=== PATIENT | female | born 1995 | race Caucasian/White ===

== ENCOUNTER 2018-02-27 17:35 | Inpatient (IN) | payer OTHER ==
[~2018-02-27] VITALS: Ht 172.7 cm; Wt 72.6 kg
[2018-02-27] MEDS ORDERED: LACTATED RINGERS 1,000 ML IV SCH (17:56)
[2018-02-27] MEDS ORDERED: LIDOCAINE HCL 1% 20ML VIAL (Pyxis) INJ INFIL PRN (18:00)
[2018-02-27] MEDS ORDERED: MISOPROSTOL 100MCG TABLET VG PRN (18:00)
[2018-02-27] MEDS ORDERED: METHYLERGONOVINE MALEATE 0.2 MG/ML IM PRN ×2 (18:00→19:45)
[2018-02-27] MEDS ORDERED: BUTORPHANOL TARTRATE 2 MG/ML VIAL IV PRN (18:30)
[2018-02-27 18:33] LABS: HEMATOCRIT. 32.7 % (36.0-48.0); HEMOGLOBIN. 10.3 g/dL (12.0-16.0); MEAN CORPUSCULAR HEMOGLOBIN 24.2 pg (28.0-32.0); MEAN CORPUSCULAR VOLUME 77.1 fL (81.0-99.0); MEAN PLATELET VOLUME 8.6 fl (7.4-10.4); PLATELET 214 x1000/uL (130-400); RED BLOOD CELL COUNT 4.24 mill/uL (4.2-5.4); RED CELL DISTRIBUTION WIDTH 16.2 % (11.6-14.6)
[2018-02-27 18:44] LABS: PARTIAL THROMBOPLASTIN TIME 28.4 sec (23.4-31.0); PROTHROMBIN TIME 9.7 sec (9.1-11.1)
[2018-02-27] MEDS: DEXT 5%/LR + PITOCIN 20UNITS/L 1,000 ML IV SCH ×2 (18:44→19:47)
[2018-02-27 19:15] LABS: HEPATITIS B SURFACE ANTIGEN NEGATIVE
[2018-02-27 19:22] LABS: PLATELET ESTIMATE NORMAL
[2018-02-27] MEDS ORDERED: MISOPROSTOL 200MCG TABLET PO NR (19:30)
[2018-02-27] MEDS ORDERED: DEXT 5%/LR + PITOCIN 20UNITS/L 1,000 ML IV SCH (19:32)
[2018-02-27] MEDS ORDERED: IBUPROFEN 400MG TABLET PO PRN (19:45)
[2018-02-27] MEDS ORDERED: BISACODYL 10MG SUPP PR PRN (19:45)
[2018-02-27] MEDS ORDERED: DIPHENHYDRAMINE 25MG CAPSULE PO PRN (19:45)
[2018-02-27] MEDS ORDERED: HEMORRHOIDAL SUPP PR PRN (19:45)
[2018-02-27] MEDS ORDERED: TETANUS, DIPHTHERIA, PERTUSSIS VAC/PF 0.5ML (>7YR OLD) IM ONE (19:45)
[2018-02-27] MEDS ORDERED: GLYCERIN/WITCH HAZEL LEAF MEDICATED PAD TOP PRN (19:45)
[2018-02-27] MEDS ORDERED: ACETAMINOPHEN WITH CODEINE 300/30MG TABLET PO PRN (19:45)
[2018-02-27] MEDS ORDERED: LANOLIN OINT 0.25 GM TUBE TOP PRN (19:45)
[2018-02-27] MEDS ORDERED: INFLUENZA VIRUS VACCINE(AFLURIA) 0.5ML SYR IM ONE (19:45)
[2018-02-27] MEDS ORDERED: BENZOCAINE/LANOLIN/ALOE VERA SPRAY TOP PRN (19:45)
[2018-02-27 21:00] VITALS: BP 115/64
[2018-02-27] MEDS ORDERED: DOCUSATE SODIUM 100MG CAPSULE PO SCH (21:00)
[2018-02-27] MEDS ORDERED: METRONIDAZOLE 500MG TABLET PO SCH (21:00)
[2018-02-27 21:30] VITALS: BP 107/56
[2018-02-27 23:30] VITALS: BP 99/59
[2018-02-27] MEDS: IBUPROFEN 800MG TABLET PO PRN (23:49)
[2018-02-28 02:01] LABS: CLARITY URINE CLEAR (CLEAR); COLOR URINE YELLOW (YELLOW); KETONES URINE NEGATIVE (NEGATIVE); LEUKOCYTE ESTERASE URINE TRACE (NEGATIVE); NITRITE URINE NEGATIVE (NEGATIVE); OCCULT BLOOD URINE 3+ (NEGATIVE); PROTEIN URINE NEGATIVE (NEGATIVE); SPECIFIC GRAVITY URINE 1.012 (1.005-1.030); UROBILINOGEN URINE 0.2 E.U./dL (0.2-1.0)
[2018-02-28 02:16] LABS: *AMPHETAMINES SCREEN URINE NEGATIVE (NEGATIVE); *BARBITURATES SCREEN URINE NEGATIVE (NEGATIVE)
[2018-02-28 02:17] LABS: *BENZODIAZEPINES SCREEN URINE NEGATIVE (NEGATIVE); *COCAINE SCREEN URINE NEGATIVE (NEGATIVE); CANNABINOID URINE SCREEN NEGATIVE (NEGATIVE); METHADONE URINE SCREEN NEGATIVE (NEGATIVE); PHENCYCLIDINE URINE SCREEN NEGATIVE (NEGATIVE)
[2018-02-28 02:22] LABS: OPIATES URINE SCREEN PRESUMTIVE POSITIVE (NEGATIVE)
[2018-02-28 04:00] VITALS: BP 112/62
[2018-02-28] MEDS: IBUPROFEN 800MG TABLET PO PRN ×3 (04:57→20:10)
[2018-02-28 08:03] LABS: BASOPHILS % 0.2 % (0.0-2.0); EOSINOPHILS % 0.1 % (0.0-5.0); HEMATOCRIT. 26.6 % (36.0-48.0); HEMOGLOBIN. 8.5 g/dL (12.0-16.0); LYMPHOCYTES % 19.7 % (20.0-50.0); MEAN CORPUSCULAR HEMOGLOBIN 24.6 pg (28.0-32.0); MEAN PLATELET VOLUME 8.6 fl (7.4-10.4); MONOCYTES % 6.6 % (2.0-8.0); NEUTROPHILS % 73.4 % (40.0-76.0); PLATELET 173 x1000/uL (130-400); RED BLOOD CELL COUNT 3.46 mill/uL (4.2-5.4); RED CELL DISTRIBUTION WIDTH 16.2 % (11.6-14.6)
[2018-02-28 08:30] VITALS: BP 92/54
[2018-02-28] MEDS ORDERED: PRENATAL VIT/FE FUMARATE/FA TABLET PO SCH (09:00)
[2018-02-28] MEDS: FERROUS SULFATE 325MG TABLET PO SCH ×3 (10:59→17:10)
[2018-02-28] MEDS: SIMETHICONE 80MG TABLET CHEW PO SCH ×4 (11:00→17:28)
[2018-02-28 15:45] VITALS: BP 95/64
[2018-02-28 20:00] VITALS: BP 101/59
[2018-03-03 06:37] LABS: OPIATES CONFIRMATION URINE Positive (.)
== END 2018-02-28 22:55 | disposition home or self-care (01) | DRG 769 ==
LOC: OBSVTOIN 17:35 → 8 EST LDRP 17:35 → 8EST 02-28 06:55
PROVIDERS: ADMIT Specialist; ATTEND Specialist
PROC: 10D17ZZ Extraction of Products of Conception, Retained, Via Natural or Artificial Opening (ICD-10-PCS; principal; 2018-02-27)
PROC: 0KQM0ZZ Repair Perineum Muscle, Open Approach (ICD-10-PCS; 2018-02-27)
DX: O72.0 Third-stage hemorrhage (principal); D62 Acute posthemorrhagic anemia; O90.81 Anemia of the puerperium; O70.1 Second degree perineal laceration during delivery
CPT/HCPCS: 36415; 80305; 80361; 86592; 86703; 86762; 86850; 86900; 87340; 99281; J0595; J2590; J3490